=== PATIENT | female | born 1965 | race Caucasian/White ===

== ENCOUNTER → 2017-07-29 | Outpatient (CLI) | payer OTHER ==
--- NOTE | 2017-07-29 14:42 | RADIOLOGY IMAGING REPORT ---
FACILITY: [facility] - [place], [place] PATIENT NAME: OG CANNON : [id number] MR: [id number] V: [id number] EXAM DATE: ORDERING PHYSICIAN: HERLINDA ELLIOTT TECHNOLOGIST: Milagros Schaeffer PROCEDURE:BILATERAL DIAGNOSTIC DIGITAL MAMMOGRAM WITH CAD ASSISTED INTERPRETATION & 3D TOMOSYNTHESIS COMPARISON:Prior mammograms 02/27/16, 02/08/13. INDICATIONS:PALPABLE ABNORMALITY IN THE APPROXIMATE 4 O'CLOCK POSITION OF THE LEFT BREAST. FINDINGS: Small amount fibroglandular tissue is seen throughout the breasts. The parenchymal pattern has remained stable allowing for difference in mammographic technique & patient positioning. There is no evidence of malignant appearing mass, malignant appearing calcifications or other secondary sign of malignancy in either breast. Today's targeted left breast ultrasound revealed several ovoid lipomas in the left breast. DIAGNOSTIC CATEGORY 2--BENIGN FINDING. RECOMMENDATIONS: ROUTINE MAMMOGRAM AND CLINICAL EVALUATION. IMPRESSION: BIRADS 2: Benign finding No significant abnormality is seen Clinical follow-up recommended for patient's palpable findings Dictated by: Ellen Garcia M.D. on 07/29/2017 at 11:58 Transcribed by: IRMA on 07/29/2017 at 14:33 Approved by: Ellen Garcia M.D. on 07/29/2017 at 14:41 [facility]
--- NOTE | 2017-07-29 14:42 | RADIOLOGY IMAGING REPORT ---
FACILITY: [facility] PATIENT NAME: OG CANNON : [id number] MR: [id number] V: [id number] EXAM DATE: ORDERING PHYSICIAN: HERLINDA ELLIOTT TECHNOLOGIST: Linda Blackman PROCEDURE:US LEFT BREAST COMPARISON:None. INDICATIONS:PALPABLE LUMP APPROXIMATE 4 O'CLOCK POSITION LEFT BREAST. FINDINGS: The approximate 4 o'clock position of the left breast in the location of the patients palpable finding there is an ovoid echogenic region with a hypoechoic central region which likely represents an area of normal fibroglandular tissue with adjacent fatty tissue. There is a 6.1mm in diameter ovoid lipoma in the 3 o'clock position of the left breast 14cm from the nipple and a 7mm ovoid lipoma in the 5 o'clock position of the left breast. DIAGNOSTIC CATEGORY 2--BENIGN FINDING. RECOMMENDATIONS: ROUTINE MAMMOGRAM AND CLINICAL EVALUATION. CLINICAL EVALUATION. IMPRESSION: BIRADS 2: Benign finding Patient has several lipomas in the 3 to 5 o'clock position of the left breast. This may account for her palpable findings however clinical follow-up for palpable finding is recommended. Dictated by: Ellen Garcia M.D. on 07/29/2017 at 12:00 Transcribed by: IRMA on 07/29/2017 at 14:35 Approved by: Ellen Garcia M.D. on 07/29/2017 at 14:41 [facility]
== END ==
LOC: MAMO 10:01
PROVIDERS: ATTEND Obstetrics & Gynecology
DX: N63.22 Unspecified lump in the left breast, upper inner quadrant (principal)
CPT/HCPCS: 77062; 77066

== ENCOUNTER 2017-08-31 01:39 | Day surgery (SDC) | payer OTHER ==
[~2017-08-31] VITALS: Ht 170.2 cm; Wt 110.7 kg
[2017-08-31] VITALS (7 sets, daily range): BP systolic 125–142; BP diastolic 65–99
[~2017-08-31 01:39] MED LIST: ASPI-1471 PO; CHOL500045 PO; ROS10 PO; Statin PO
[2017-08-31] MEDS ORDERED: PROPOFOL EMUL(*) 10MG/ML 20 ML 60 ML ONE (06:55)
[2017-08-31] MEDS ORDERED: LIDOCAINE MPF 1% 5 ML VIAL ONE (06:55)
[2017-08-31] MEDS ORDERED: NORMOSOL R SOLN(*) 1000 ML BAG 1,000 ML IV PRN (08:55)
[2017-08-31] MEDS ORDERED: LIDOCAINE/SOD BICARB 8.4% SYR ID ONE (08:55)
--- NOTE | 2017-08-31 09:46 | Short(Outpt) Discharge Summary ---
Discharge Summary Reason for Hosp/Final Diag: (1) Colon cancer screening Status: Chronic Hospital Course & Plan: Colonoscopy with polypectomy x2 completed without problems. Departure Discharge to: Home, Self Care Discharge Instructions Home Meds Reported Medications Cholecalciferol (Vitamin D3) (VITAMIN D) 5,000 Unit Tablet, 5000 UNIT PO DIRECTED 08/26/17 Rosuvastatin Calcium (CRESTOR) 10 Mg Tab, 10 MG PO QDAY, #5 TAB 08/26/17 Aspirin (ASPIR 81) 81 Mg Tablet.dr, 81 MG PO QDAY, TAB 08/08/17 Discontinued Reported Medications [Statin] No Conflict Check, 1 TAB PO QHS 08/10/17 Diet: Regular Activity: As Tolerated Special Instructions: Your colonoscopy was completed without problems and your prep was excellent (Good Job!!). I removed 2 small polyps from your colon and they were sent to pathology. My office will call you in the next week to let you know what the polyps are and when your next colonoscopy should be (either 5 or 10 years) depending on if the polyps are benign or precancerous. Copies to: HERLINDA ELLIOTT MD, JOHN A MD Aug 31, 2017 09:46
== END 2017-08-31 10:37 | disposition home or self-care (01) ==
LOC: OR 01:39
PROVIDERS: ATTEND Surgery
DX: Z12.11 Encounter for screening for malignant neoplasm of colon (principal); D12.3 Benign neoplasm of transverse colon; K63.5 Polyp of colon
CPT/HCPCS: 00811; 45385; 88305; J2001; J2704